=== PATIENT | male | born 1990 | race Caucasian/White ===

== ENCOUNTER 2020-01-31 17:41 | Outpatient (CLI) | payer OTHER, SELFPAY ==
--- NOTE | ~2020-01-31 | MR_ITS ---
EXAMINATION: MR shoulder LT wo con DATE: 01/31/2020 18:41 INDICATION: Recurrent left shoulder dislocations. TECHNIQUE: Magnetic resonance imaging (MRI) of the left shoulder was performed without intravenous co ntrast. Sequences included axial PD-weighted FS FSE, coronal oblique PD-weighted FS FSE and T2-weight ed FS FSE, and sagittal oblique T2-weighted FS FSE and T1-weighted FSE. COMPARISON: Left shoulder radiographs 11/16/2019 FINDINGS: Coracoacromial arch: The acromion undersurface is curved in morphology (type II). Acromioclavicular joint is normal. There is mild subacromial/subdeltoid bursitis. Rotator cuff: There is mild supraspinatus and infraspinatus tendinopathy. Teres minor tendon is normal. There is mi ld subscapularis tendinopathy. No tear. There is no asymmetric fatty atrophy of the rotator cuff musc le bellies. Biceps tendon and glenoid labrum: Biceps tendon is in bicipital groove. Intra-articular biceps tendon is normal. There is a tear of ant erior labrum from 2:00 to 4:00. Fluid: There is no glenohumeral joint effusion. There are two 5 mm loose bodies in the posterior inferior gl enohumeral joint. Bones/cartilage: There is cartilage surface irregularity of glenoid and humeral head. There is a chronic impaction fra cture deformity of superior posterolateral humeral head (Hill-Sachs fracture deformity). IMPRESSION: 1. Anterior labral tear. 2. Chronic Hill-Sachs fracture deformity. 3. Mild glenohumeral joint chondrosis. 4. Glenohumeral joint loose bodies. 5. Mild subacromial/subdeltoid bursitis. Reviewed, dictated and finalized at location A.
== END 2020-01-31 17:42 | disposition home or self-care (01) ==
PROVIDERS: PCP Family Medicine; Visit Provider Orthopaedic Surgery
DX: M24.412 Recurrent dislocation, left shoulder (principal); M75.52 Bursitis of left shoulder; M24.012 Loose body in left shoulder
CPT/HCPCS: 73221

== ENCOUNTER → 2021-11-09 07:28 | Outpatient (CLI) | payer BC, SELFPAY ==
[2021-11-10 02:03] LABS: SARS-CoV-2 RNA PCR Positive
== END ==
PROVIDERS: PCP Family Medicine; Visit Provider Family Medicine
DX: U07.1 COVID-19 (principal)
CPT/HCPCS: C9803; U0003; U0005

== ENCOUNTER 2023-08-11 00:35 | Day surgery (SDC) | payer BC, SELFPAY ==
[2023-08-11] VITALS (15 sets, daily range): BP systolic 109–130; BP diastolic 59–104; PULSE 74–108; RESP 14–24; TEMP 36.2–36.6; O2SAT 95–100
--- NOTE | ~2023-08-11 | CT_ITS ---
CT of the Abdomen and Pelvis: Indication: Abdominal pain Technique: 2.5 mm axial scans were obtained through the abdomen and pelvis following intravenous adm inistration of 100 cc of Omnipaque 350. Dose reduction technique was used on this scan by utilizing a utomated exposure control and iterative reconstruction technique. The dose-length product (DLP) was 4 76.57 mGy-cm. Findings: Scans through the lung bases are unremarkable. The liver, spleen, pancreas, gallbladder, adrenals and kidneys are within normal limits. No evidence of aortic aneurysm. No retroperitoneal lymphadenopathy. Appendix is extensively dilated to 14 mm in diameter. There is extensive periappendiceal inflammatory stranding. There is a large appendicolith at the proximal appendix (axial image 137), with small rodney endicoliths in the more distal appendix. No abscess or free air evident. Shotty periappendiceal lymph nodes are present, reactive. Images through the pelvis were performed. Urinary bladder unremarkable. Prostate gland and seminal ve sicles are unremarkable. Trace pelvic ascites noted. Impression: Acute appendicitis, as detailed above. No abscess or free air. Reviewed, dictated and finalized at [facility]. Impression: Acute appendicitis, as detailed above. No abscess or free air.
[2023-08-11] MEDS: MORPHINE SULFATE (*CRX) 4 MG/ML INJ (01:56)
[2023-08-11] MEDS: ONDANSETRON INJ 4 MG/2 ML VIAL (01:56)
[2023-08-11] MEDS: SODIUM CHLORIDE 0.9% IV 1,000 ML 999 ML (02:52)
[2023-08-11 03:43] LABS: Basophils Percent Auto 0.2 % (0.2-1.2); Eosinophils Percent Auto 0.1 % (0-4.4); Hematocrit 45.9 % (42.0-52.0); Immature Granulocyte Absolute 0.06 K/mm3 (0.00-0.031); Immature Granulocyte Percent A 0.5 % (0-0.5); Lymphocytes Absolute Auto 0.68 K/mm3 (0.9-3.2); Lymphocytes Percent Auto 5.7 % (18.3-44.2); Mean Corpuscular HGB Conc 34.9 g/dl (32-36); Mean Corpuscular Hemoglobin 30.5 pg (26-34); Mean Corpuscular Volume 87.6 fl (80-100); Monocytes Absolute Auto 0.9 K/mm3 (0.1-0.6); Monocytes Percent Auto 7.2 % (2.6-8.5); Neutrophils Absolute Auto 10.3 K/mm3 (1.3-6.7); Neutrophils Percent Auto 86.3 % (45.5-73.1); Platelet Count Result 141 k/mm3 (150-375); Red Blood Count 5.24 M/mm3 (4.6-6.20); Red Cell Distribution Width 11.9 % (11.5-14.5); White Blood Count 11.9 K/mm3 (4.5-10.0)
[2023-08-11 03:48] LABS: Alanine Aminotransferase 31 U/L (6-50); Albumin Level 4.6 g/dL (3.5-5.1); Alkaline Phosphatase 50 U/L (38-126); Anion Gap 8 mmol/L (8-16); Aspartate Amino Transferase 30 U/L (17-59); Bilirubin,Total 0.8 mg/dL (0.2-1.3); Blood Urea Nitrogen 18 mg/dL (9-20); Calcium 9.5 mg/dL (8.4-10.2); Carbon Dioxide 29 mmol/L (22-30); Chloride 98 mmol/L (98-107); Estimated CRCL calculation 117 ml/min; Estimated Glomerular Filt Rate > 60; Glucose 153 mg/dL (65-110); Lipase 40 U/L (23-300); Potassium 4.5 mmol/L (3.4-5.0); Sodium 135 mmol/L (137-145)
[2023-08-11 03:49] LABS: Appearance Urine Clear (Clear); Bacteria Urine None Seen /hpf; Bilirubin Urine Negative (Negative); Blood Urine Negative (Negative); Color Urine Yellow (Yellow); Glucose Urine UA Trace mg/dL (Negative); Ketones Urine 2+ mg/dL (Negative); Leukocyte Esterase Ur Negative LEU/UL (Negative); Nitrate Urine Negative (Negative); Non Pathogenic Casts 0-2; Protein Urine Trace mg/dL (Negative); RBC Urine 0-2 /hpf (0-2); Specific Grav Ur 1.025 (1.001-1.035); Squamous Epithelial Cell Urine None seen /hpf (Few); WBC Urine 0-5 /hpf; pH Urine >=9.0 (5.0-9.0)
[2023-08-11 03:50] LABS: Add Urine Microscopic? YES
--- NOTE | 2023-08-11 05:03 | ED.GENADULT ---
HPI - General Adult General Chief complaint: Abdominal Pain Stated complaint: abd pain/nausea vomiting Time Seen by Provider: 08/11/23 03:02 History of Present Illness HPI narrative: Patient is a 33-year-old gentleman who presents the emergency department with chief complaint of abdominal pain patient reports that his pain began this evening and reports that he had some nausea and vomiting patient reports no diarrhea reports that he thought that he was constipated and took Colace but then vomited patient reports that he has had no prior abdominal surgeries and reports that he has history of seizures and takes antiepileptics. Related Data Home Medications Medication Instructions Recorded Confirmed levetiracetam 1,000 mg tablet 1,000 mg PO Q12H 12/04/19 01/16/20 divalproex 500 mg tablet,delayed 500 mg PO Q12H 01/16/20 01/16/20 release Allergies Allergy/AdvReac Type Severity Reaction Status Date / Time No Known Allergies Allergy Mild Verified 08/11/23 00:35 Review of Systems Review of Systems: A 10 system review of systems was completed on the patient and is negative except for what is stated in the HPI. Nursing and ancillary documentation was reviewed. [facility] Past Medical History Medical History Epilepsy History of lower leg fracture (~1994) Recurrent anterior dislocation of left shoulder Recurrent dislocation, left shoulder Seizure disorder Surgical History Surgical History No pertinent past surgical history Family History Family History Father Diabetes mellitus Unknown Cancer Social History Social History Smoking status: Never smoker Alcohol intake: current Alcohol use details: Occasional Living arrangements: with roommate(s) Occupation/Education: occupation Additional occupation/education comments: [employer] Gender identity (if verbalized by the patient): Male Exam Narrative: GENERAL: Well-appearing, well-nourished, and in no acute distress. HEAD: Normocephalic, atraumatic. EYES: PERRLA and EOMI. ENT: Nares clear, no rhinorrhea or epistaxis. Mucous membranes moist. NECK: Supple. CHEST: Clear to auscultation. No respiratory distress. HEART: Regular rate and rhythm. No murmur heard. Normal peripheral pulses. ABDOMEN: Soft, diffuse mild tenderness, nondistended, normal active bowel sounds. EXTREMITIES: Normal range of motion. No edema. SKIN: Warm, dry, no rash. NEURO: No focal deficits. Alert and oriented x3. PSYCH: Normal mood and affect. Course Vital Signs Vital signs: Vital Signs Temperature 36.2 C L 08/11/23 00:42 Pulse Rate 85 08/11/23 00:42 Respiratory Rate 18 08/11/23 00:42 Blood Pressure 122/104 H 08/11/23 00:42 Pulse Oximetry 100 08/11/23 00:42 Temperature 36.2 C L 08/11/23 00:42 Pulse Rate 88 08/11/23 03:41 Respiratory Rate 18 08/11/23 03:41 Blood Pressure 130/80 08/11/23 03:41 Pulse Oximetry 100 08/11/23 03:41 Medical Decision Making [facility] Narrative Medical decision making narrative: Differential diagnosis includes intra-abdominal infection, diverticulitis, colitis, acute appendicitis Studies were obtained showed a white count of 11.9 electrolytes are within normal limits urinalysis showed no evidence of UTI 2+ ketones CT scan of the abdomen pelvis showed evidence of acute appendicitis Patient was started on Zosyn Case was discussed with Dr. Modi who will admit the patient and plan for probable appendectomy today Vital Signs Vital Signs: Vital Signs Temperature 36.2 C L 08/11/23 00:42 Pulse Rate 85 08/11/23 00:42 Respiratory Rate 18 08/11/23 00:42 Blood Pressure 122/104 H 08/11/23 00:42 Pulse Oximetry 100 08/11/23 00:42 Temper
[2023-08-11] MEDS: MORPHINE SULFATE (*CRX) 4 MG/ML INJ IV PUSH (06:37)
[2023-08-11] MEDS: ONDANSETRON INJ 4 MG/2 ML VIAL IV PUSH (06:38)
[2023-08-11] MEDS: PIPERACILLN/TAZ 3.375GM/NS50ML 3.375 GM/50 ML BAG IVPB (06:38)
[2023-08-11] MEDS: SODIUM CHLORIDE 0.9% IV 1,000 ML 125 ML IV CONT (06:38)
[2023-08-11] MEDS: levETIRAcetam 500 MG TABLET 1000 MG PO (07:37)
[2023-08-11] MEDS: DIVALPROEX SODIUM ER 500 MG TAB.24H PO (07:38)
--- NOTE | 2023-08-11 08:19 | SUR.PREOP ---
Spoke with patient and his mother about surgery not being until 1230. Voices understanding.
--- NOTE | 2023-08-11 09:01 | WPDANESEPPF ---
Anes - Initial Pre Proc Eval Procedure: Operation Date: 08/11/23 12:30 Proposed Procedures p Laparoscopic Appendectomy - Franck Hines DO Date/Time: 08/11/23 09:01 Surgeon: Franck Hines DO Pre Op Diagnosis: abd pain/nausea vomiting Patient Data Age: 33 Gender: M Height: 1.85 m Weight: 90 kg Last Vital Signs Temp 36.2 C L 08/11/23 00:42 Pulse 106 H 08/11/23 06:30 Resp 18 08/11/23 06:30 BP 115/62 08/11/23 06:30 Pulse Ox 100 08/11/23 06:30 Allergies Allergy/AdvReac Type Severity Reaction Status Date / Time No Known Allergies Allergy Mild Verified 08/11/23 00:35 Home Medications Medication Instructions Recorded Confirmed Type hydrocodone 5 mg-acetaminophen 325 1 tablet PO Q6H PRN pain #20 tabs 11/16/19 01/16/20 Rx mg tablet levetiracetam 1,000 mg tablet 1,000 mg PO Q12H 12/04/19 01/16/20 History divalproex 500 mg tablet,delayed 500 mg PO Q12H 01/16/20 01/16/20 History release Laboratory Tests 08/11/23 01:00 WBC 11.9 H K/mm3 (4.5-10.0) RBC 5.24 M/mm3 (4.6-6.20) Hgb 16.0 g/dL (14.0-18.0) Hct 45.9 % (42.0-52.0) MCV 87.6 fl (80-100) MCH 30.5 pg (26-34) MCHC 34.9 g/dl (32-36) RDW 11.9 % (11.5-14.5) Plt Count 141 L k/mm3 (150-375) MPV 10.0 fl (7.4-10.4) Immature Gran % (Auto) 0.5 % (0-0.5) Neut % (Auto) 86.3 H % (45.5-73.1) Lymph % (Auto) 5.7 L % (18.3-44.2) [facility] % (Auto) 7.2 % (2.6-8.5) Eos % (Auto) 0.1 % (0-4.4) Baso % (Auto) 0.2 % (0.2-1.2) Lymph # (Auto) 0.68 L K/mm3 (0.9-3.2) [facility] # (Auto) 0.9 H K/mm3 (0.1-0.6) Eos # (Auto) 0.0 K/mm3 (0-0.3) Baso # (Auto) 0.0 K/mm3 (0.0-0.1) Abs Immat Gran (auto) 0.06 H K/mm3 (0.00-0.031) Absolute Neuts (auto) 10.3 H K/mm3 (1.3-6.7) Absolute Nucleated RBC 0.0 K/mm3 (0.0-0.012) Nucleated RBC % 0.0 % (0.0-0.2) Sodium 135 L mmol/L (137-145) Potassium 4.5 mmol/L (3.4-5.0) Chloride 98 mmol/L (98-107) Carbon Dioxide 29 mmol/L (22-30) Anion Gap 8 mmol/L (8-16) BUN 18 mg/dL (9-20) Creatinine 0.90 mg/dL (0.7-1.3) Estim Creat Clear Calc 117 ml/min Estimated GFR > 60 (59 - ) Glucose 153 H mg/dL (65-110) Calcium 9.5 mg/dL (8.4-10.2) Total Bilirubin 0.8 mg/dL (0.2-1.3) AST 30 U/L (17-59) ALT 31 U/L (6-50) Alkaline Phosphatase 50 U/L (38-126) Total Protein 8.0 g/dL (6.3-8.2) Albumin 4.6 g/dL (3.5-5.1) Lipase 40 U/L (23-300) Urine Color Yellow (Yellow) Urine Appearance Clear (Clear) Urine pH >=9.0 H (5.0-9.0) Ur Specific [place] 1.025 (1.001-1.035) Urine Protein Trace mg/dL (Negative) Urine Glucose (UA) Trace H mg/dL (Negative) Urine Ketones 2+ H mg/dL (Negative) Ur Blood (Man) Negative (Negative) Urine Nitrate Negative (Negative) Urine Bilirubin Negative (Negative) Urine Urobilinogen 1.0 mg/dL (<2.0) Leukocyte Esterase Rfl Negative LUANNE/UL (Negative) Urine RBC 0-2 /hpf (0-2) Urine WBC 0-5 /hpf Ur Squamous Epith Cells None seen /hpf (Few) Urine Bacteria None seen /hpf Urine Casts 0-2 Patient hx anesthesia problems: none Family hx anesthesia problems: none Results Review: All pre-operative results and documents have been reviewed as part of the pre-operative evaluation. [facility] Past Medical History Medical History Epilepsy History of lower leg fracture (~1994) Recurrent anterior dislocation of left shoulder Recurrent dislocation, left shoulder Seizure disorder Surgical History Surgical History No pertinent past surgical history Family History Family History Father Diabetes mellitus
--- NOTE | 2023-08-11 09:10 | WPDHPUPDATE1 ---
History and Physical Update Update Date/Time: 08/11/23 09:10 History and Physical has been reviewed, including an updated exam of the patient. There are NO changes in the patient's condition. Risks, benefits, and alternatives have been discussed and questions answered. Patient agrees to proceed with procedure.
--- NOTE | 2023-08-11 09:10 | PM.IMHP ---
H&P: [facility] History of Present Illness Date/Time: 08/11/23 09:10 Chief Complaint: Right lower quadrant pain Narrative: This is a 33-year-old man who presented to the emergency department this morning with right lower quadrant pain that started around noon yesterday. He started with some mild periumbilical pain that eventually became more severe and localized to the right lower quadrant. He did have some nausea with dry heaves as well. He denies any change in bowel habits. He has never had any symptoms like this before. He denies any fevers. Review of Systems Review of Systems: All systems reviewed & are unremarkable except as noted in HPI and below Constitutional: Constitutional: Reports as per HPI Eyes: Eyes: Denies change in vision ENT: Denies hearing loss, Denies neck pain and Denies sore throat Cardiovascular: Cardiovascular: Denies chest pain and Denies dyspnea Respiratory: Respiratory: Denies cough, Denies dyspnea and Denies wheezing Gastrointestinal: Gastrointestinal: Reports as per HPI Genitourinary: Genitourinary: Denies hematuria and Denies dysuria Musculoskeletal: Musculoskeletal: Denies arthralgias, Denies joint swelling and Denies neck pain Allergic/Immunologic: Allergic/Immunologic: Denies wheezing [facility] Past Medical History Medical History (Updated 08/11/23 @ 09:14 by Franck Hines DO) Epilepsy History of lower leg fracture (~1994) Recurrent anterior dislocation of left shoulder Recurrent dislocation, left shoulder Seizure disorder Surgical History Surgical History No pertinent past surgical history Family History Family History Father Diabetes mellitus Unknown Cancer Social History Social History Smoking status: Never smoker Alcohol intake: current Alcohol use details: Occasional Living arrangements: with roommate(s) Occupation/Education: occupation Additional occupation/education comments: [employer] Gender identity (if verbalized by the patient): Male Meds Home Medications and Allergies Home Medications Medication Instructions Recorded Confirmed Type hydrocodone 5 mg-acetaminophen 325 1 tablet PO Q6H PRN pain #20 tabs 11/16/19 01/16/20 Rx mg tablet levetiracetam 1,000 mg tablet 1,000 mg PO Q12H 12/04/19 01/16/20 History divalproex 500 mg tablet,delayed 500 mg PO Q12H 01/16/20 01/16/20 History release Allergies Allergy/AdvReac Type Severity Reaction Status Date / Time No Known Allergies Allergy Mild Verified 08/11/23 00:35 Vital Signs Vital Signs - 24 hr 08/11/23 00:42 08/11/23 03:41 08/11/23 06:30 Temperature 36.2 C L Pulse Rate 85 88 106 H Respiratory Rate 18 18 18 Blood Pressure 122/104 H 130/80 115/62 Pulse Oximetry 100 100 100 Oxygen Delivery 08/11/23 09:00 Temperature 36.5 C Pulse Rate 96 Respiratory Rate 16 Blood Pressure 109/59 L Pulse Oximetry 100 Oxygen Delivery Room Air Exam Const: General: alert; No acute distress Orientation/consciousness: patient oriented x3 Limitations: no limitations HENMT: Head: normocephalic and atraumatic Ears: hearing grossly normal bilaterally Face/Nose/Sinus: Normal external nose present and Normal nares present Mouth: Yes Normal oral and palatal mucosa present and Yes moist mucous membranes Eyes: General: appearance normal, both eyes and all related structures Conjunctivae: conjunctivae normal Sclera: sclerae normal Pupils: Equal, round and reactive pupils present EOM: EOMs intact bilaterally Neck: Neck: normal visual inspection, full ROM, no lymphadenopathy, supple and no JVD Lymphatic: no lymphadenopathy noted Chest: Chest palpation & inspection: normal inspection of the chest Resp: Effort & Inspection: normal respiratory effort and able to speak in complete sentences Auscultation: cl
--- NOTE | 2023-08-11 10:16 | W.PM.PROC2 ---
Procedure Note - Detailed Date of Procedure 08/11/23 Pre-op Diagnosis Acute appendicitis Post-op Diagnosis Same Procedure Performed Laparoscopic appendectomy Surgeon Franck Hines, DO Anesthesia General and Local (0.5% bupivacaine with epinephrine) Indications This is a 33-year-old man who presented to the emergency department this morning with right lower quadrant pain that started yesterday. He was found to have a slight elevated white blood count and CT showed evidence of appendicitis with surrounding inflammatory changes and appendicoliths. He was started on Zosyn and I discussed treatment options with the patient. Decision was made to proceed with laparoscopic appendectomy, possible open. Findings Laparoscopic appendectomy was performed. The appendix appeared indurated and dilated. There were surrounding inflammatory adhesions involving the mesoappendix and mesentery of the distal ileum. Base of the appendix appeared healthy and viable. The appendix was removed and sent to the lab for pathology. There was no evidence of perforation or abscess. Description of Procedure Procedure as well as risks, benefits, and alternatives were explained to the patient. The patient agreed to proceed. Written consent was obtained and placed in chart prior to procedure. The patient was brought back to surgical suite. He was placed supine on operating table. Time-out was done to confirm the patient and procedure. The patient was then intubated by the Anesthesia Department. His abdomen was prepped and draped in sterile fashion using chlorhexidine prep. A 12 mm incision was made at the inferior portion of the umbilicus. Blunt dissection was carried out down to the linea alba. The linea alba was then incised using a 15 blade scalpel. Then bluntly entered into the peritoneal cavity. A 12 mm trocar was then inserted, and carbon dioxide insufflation was used to create a pneumoperitoneum. The camera was inserted and the abdomen was inspected. No immediate abnormalities were identified. The patient was then placed in slight Trendelenburg position and rotated to the left. A 5 mm incision was made in the suprapubic region in midline and a 5 mm trocar was inserted under direct visualization. A 5 mm incision was made in the left lower quadrant and a 5 mm trocar was inserted under direct visualization. The right lower quadrant was carefully inspected. The cecum was identified and then this was traced back to the appendix. The appendix was identified and grasped at the mesoappendix and lifted anteriorly. Careful blunt dissection was carried out at the base of the appendix through the mesoappendix using a [place] grasper. An Endo-BIANCA 45 mm blue load stapler was then advanced across the base of the appendix and clamped and fired. A white reload was then clamped across the mesoappendix and fired. This freed up our appendix completely. It was then placed in an EndoCatch bag and removed through the umbilical port. The staple lines were then inspected. Hemostasis appeared adequate and the staple lines appeared secure. The area was then irrigated with sterile saline. The pelvis was then carefully inspected and irrigated with sterile saline as well and the remainder of the abdomen was carefully inspected. The patient was then flattened out in bed. One final inspection was made around the abdominal cavity and no other abnormalities were seen. The ports were then removed under direct visualization. The camera was removed and the pneumoperitoneum was released. The fascia of the umbilical incision was reapproximated using an 0 Vicryl [id number] suture. 0.5% bupivacaine with epinephrine was infiltrated locally around each of the incisions. The skin of the incisions was then approximated using 4-0 Monocryl subcuticular suture and Exofin glue was applied on top. The patient was then awakened from anesthesia, extubated, and transferred to Recovery. Estimated Blood Loss
[2023-08-11] MEDS: LACTATED RINGERS 1,000 ML 30 ML IV CONT (10:19)
== END 2023-08-11 13:25 | disposition home or self-care (01) ==
LOC: ANHED 06:59 → ANHSURGERY 07:28
PROVIDERS: Emergency Provider Emergency Medicine; PCP Family Medicine; Visit Provider Surgery
PROC: 0DTJ4ZZ Resection of Appendix, Percutaneous Endoscopic Approach (ICD-10-PCS; CPT 44970; principal; 2023-08-11 12:30)
DX: K35.30 Acute appendicitis with localized peritonitis, without perforation or gangrene (principal); G40.909 Epilepsy, unspecified, not intractable, without status epilepticus
CPT/HCPCS: 44970; 36415; 74177; 80053; 81001; 83690; 85025; 88304; 96361; 96365; 96375; 96376; 99285; A9270; J1100; J1170; J2250; J2270; J2405; J2543; J2704; J2710; J3010; J7030; J7120; Q9967